=== PATIENT | male | born 1960 | race Caucasian/White ===

== ENCOUNTER 2021-06-11 15:46 | Inpatient (IN) | payer OTHER ==
[2021-06-11 17:36] VITALS: BMI 23.1
[2021-06-11] MEDS ORDERED: MAGNESIUM HYDROX 2400MG/30ML ORAL SUSPENSION 30 ML CUP PO PRN (19:51)
[2021-06-11] MEDS ORDERED: BISMUTH SUBSALICYLATE 524 MG/30 ML PO PRN (19:51)
[2021-06-11] MEDS ORDERED: LOPERAMIDE HCL 2 MG CAPSULE PO PRN (19:51)
[2021-06-11] MEDS ORDERED: guaiFENesin 200 MG/10 ML 10 ML UNIT-DOSE CUPS PO PRN (19:51)
[2021-06-11] MEDS ORDERED: MAGNESIUM CITRATE 300 ML BOTTLE PO PRN (19:51)
[2021-06-11] MEDS ORDERED: MAG HYDROX/AL HYDROX/SIMETH 30 ML UNIT-DOSE CUP PO PRN (19:51)
[2021-06-11] MEDS ORDERED: ONDANSETRON *ODT* 4 MG TABLET SL PRN (19:51)
[2021-06-11] MEDS ORDERED: MENTHOL/PHENOL 1 EACH UD MM PRN (19:51)
[2021-06-11] MEDS ORDERED: NICOTINE POLACRILEX 2 MG GUM BUC PRN (19:51)
[2021-06-11] MEDS ORDERED: ACETAMINOPHEN 325 MG TABLET (FP) PO PRN ×2 (19:51)
[2021-06-11] MEDS ORDERED: hydrOXYzine PAMOATE 25 MG CAPSULE (FP) PO PRN (19:51)
[2021-06-11] MEDS ORDERED: DICYCLOMINE HCL 10 MG CAPSULE PO PRN (19:51)
[2021-06-11] MEDS ORDERED: IBUPROFEN 400 MG TABLET (FP) PO PRN (19:51)
[2021-06-11] MEDS ORDERED: diazePAM 5 MG TABLET PO PRN (19:54)
[2021-06-11] MEDS ORDERED: HYDROCORTISONE 0.5% TOPICAL CREAM 30 GM TUBE TP PRN (19:57)
[2021-06-11] MEDS: BACITRACIN 0.9 GM PACKET TP SCH (22:25)
[2021-06-11] MEDS: MELATONIN 5 MG TABLETS PO SCH (22:26)
[2021-06-11] MEDS: THIAMINE HCL 100 MG TABLET (FP) PO SCH (22:26)
[2021-06-12] MEDS: PRENATAL VITAMINS W/ FOLIC ACID TABLET (FP) PO SCH (10:30)
[2021-06-12] MEDS: BACITRACIN 0.9 GM PACKET TP SCH ×2 (10:30→22:34)
[2021-06-12 10:59] LABS: HEMATOCRIT 34.4 % (35.4-49); HEMOGLOBIN 11.5 GM/dL (11.7-16.9); MCH 30.8 pg (25.7-33.7); MCHC 33.5 g/dl (32.0-35.9); MEAN PLT VOLUME 7.5 fl (7.5-11.1); PLATELET COUNT 232 10^3/uL (134-434); RBC 3.74 M/mm3 (4.00-5.60); RDW 15.7 % (11.9-15.9); WHITE BLOOD COUNT 5.6 K/mm3 (4.0-10.0)
[2021-06-12 11:08] LABS: ALBUMIN 3.2 g/dl (3.4-5.0); CALCIUM 9.4 mg/dL (8.5-10.1)
[2021-06-12 11:09] LABS: BLOOD UREA NITROGEN 17.8 mg/dL (7-18)
[2021-06-12 11:12] LABS: CREATININE 0.8 mg/dL (0.55-1.3)
[2021-06-12 11:13] LABS: TOT PROT 7.2 g/dl (6.4-8.2)
[2021-06-12 11:15] LABS: BILIRUBIN,TOTAL 1.2 mg/dL (0.2-1)
[2021-06-12] MEDS ORDERED: diazePAM 5 MG TABLET PO ONE (13:45)
[2021-06-12] MEDS: diazePAM 5 MG TABLET PO SCH ×2 (17:34→22:34)
[2021-06-12] MEDS: THIAMINE HCL 100 MG TABLET (FP) PO SCH (22:34)
[2021-06-12] MEDS: MELATONIN 5 MG TABLETS PO SCH (22:34)
[2021-06-13] MEDS: diazePAM 5 MG TABLET PO SCH ×4 (05:53→22:38)
[2021-06-13] MEDS: PRENATAL VITAMINS W/ FOLIC ACID TABLET (FP) PO SCH (11:20)
[2021-06-13] MEDS: BACITRACIN 0.9 GM PACKET TP SCH ×2 (11:20→22:37)
[2021-06-13] MEDS: THIAMINE HCL 100 MG TABLET (FP) PO SCH (22:37)
[2021-06-13] MEDS: MELATONIN 5 MG TABLETS PO SCH (22:37)
[2021-06-14] MEDS: diazePAM 5 MG TABLET PO SCH ×3 (06:02→22:08)
[2021-06-14] MEDS ORDERED: MASKS NR ONE (08:06)
[2021-06-14] MEDS: PRENATAL VITAMINS W/ FOLIC ACID TABLET (FP) PO SCH (10:31)
[2021-06-14] MEDS: BACITRACIN 0.9 GM PACKET TP SCH ×2 (10:32→22:08)
[2021-06-14] MEDS: diazePAM 5 MG TABLET PO PRN (10:32)
[2021-06-14] MEDS: MELATONIN 5 MG TABLETS PO SCH (22:08)
[2021-06-14] MEDS: THIAMINE HCL 100 MG TABLET (FP) PO SCH (22:08)
[2021-06-15] MEDS: diazePAM 5 MG TABLET PO SCH ×2 (05:38→17:51)
[2021-06-15] MEDS: PRENATAL VITAMINS W/ FOLIC ACID TABLET (FP) PO SCH (10:12)
[2021-06-15] MEDS: diazePAM 5 MG TABLET PO PRN (10:12)
[2021-06-15] MEDS: BACITRACIN 0.9 GM PACKET TP SCH ×2 (10:12→22:24)
[2021-06-15] MEDS: THIAMINE HCL 100 MG TABLET (FP) PO SCH (22:23)
[2021-06-15] MEDS: MELATONIN 5 MG TABLETS PO SCH (22:23)
[2021-06-16] MEDS ORDERED: diazePAM 5 MG TABLET PO ONE (06:00)
[2021-06-16 09:10] VITALS: BP 116/78; PULSE 73; TEMP 96.4
[2021-06-16] MEDS: PRENATAL VITAMINS W/ FOLIC ACID TABLET (FP) PO SCH (09:55)
[2021-06-16] MEDS: BACITRACIN 0.9 GM PACKET TP SCH (09:55)
== END 2021-06-16 10:10 | disposition home or self-care (01) | DRG 773 ==
LOC: YASAS 15:46 → Y3N 20:01
PROVIDERS: ADMIT Allergy & Immunology; ATTEND Allergy & Immunology
PROC: HZ2ZZZZ Detoxification Services for Substance Abuse Treatment (ICD-10-PCS; principal; 2021-06-11)
DX: F11.23 Opioid dependence with withdrawal (principal); F10.230 Alcohol dependence with withdrawal, uncomplicated; F17.210 Nicotine dependence, cigarettes, uncomplicated; E87.1 Hypo-osmolality and hyponatremia; D64.9 Anemia, unspecified; J45.909 Unspecified asthma, uncomplicated; I25.2 Old myocardial infarction; Z86.19 Personal history of other infectious and parasitic diseases
CPT/HCPCS: 36415; 80053; 85027; 86780; C9803; U0003; U0005